=== PATIENT | male | born 1960 | race Caucasian/White ===

== ENCOUNTER 2018-03-23 19:12 | Emergency (ER) | payer MEDICARE, MEDICAID ==
[~2018-03-23] VITALS: Ht 167.6 cm; Wt 88.5 kg
[2018-03-23 19:25] VITALS: BP 145/86
[2018-03-23] MEDS ORDERED: PRAVACHOL20 MG PO (19:27)
[2018-03-23] MEDS ORDERED: ACTOS15 MG PO (19:27)
[2018-03-23] MEDS ORDERED: GLUCOPHAGE XR750 M1 PO (19:28)
[2018-03-23] MEDS ORDERED: GLIPIZIDE 10 MG10 MG PO (19:28)
[2018-03-23] MEDS ORDERED: TRAZODONE HCL100 MG PO (19:28)
[2018-03-23] MEDS ORDERED: GABAPENTIN 100100 MG PO (19:29)
[2018-03-23] MEDS ORDERED: ULTRAM 50MG TAB50 MG PO (19:29)
[2018-03-23] MEDS ORDERED: OXCARBAZEPINE300 M1 PO (19:29)
[2018-03-23] MEDS ORDERED: KEFLEX500 M1 PO (20:16)
== END 2018-03-23 20:24 | disposition home or self-care (01) ==
LOC: M.ERS 19:12
DX: S80.11XA Contusion of right lower leg, initial encounter (principal); E11.42 Type 2 diabetes mellitus with diabetic polyneuropathy; W18.39XA Other fall on same level, initial encounter; Y93.89 Activity, other specified; Y92.89 Other specified places as the place of occurrence of the external cause; Y99.8 Other external cause status